=== PATIENT | female | born 1950 | race Caucasian/White ===

== ENCOUNTER 2017-05-20 22:53 | Emergency (ER) | payer BC ==
[~2017-05-20] VITALS: Ht 160 cm; Wt 81.6 kg
[~2017-05-20 22:53] MED LIST: ALLEGRA60 M2 PO; AMOXICILLIN500 MG PO; BONIVA150 MG PO; BONIVA2.5 MG PO; HYDR25T PO; HYDROCODONE BIT1 T11 PO; IBU800 M1 PO; PROPANOLOL
[2017-05-20] MEDS ORDERED: ARIMIDEX1 MG PO (23:04)
[2017-05-20 23:15] LABS: BASO % 0.5 % (0.0-1.0); EOS # 0.3 10*3/uL (0.0-0.4); EOS % 5.2 % (1.0-4.0); HEMATOCRIT 41.1 % (37.0-47.0); HEMOGLOBIN 13.1 g/dl (12.0-16.0); IG # 0.1 10*3/uL (0.0-0.1); LYMPH # 2.2 10*3/uL (1.3-4.4); LYMPH % 34.1 % (27.0-41.0); MEAN CELL VOLUME 96.9 fl (81.0-99.0); MEAN CORPUSCULAR HGB 30.9 pg (27.0-31.0); MEAN CORPUSCULAR HGB CONC 31.9 g/dl (33.0-37.0); MEAN PLATELET VOLUME 10.8 fl (9.6-12.3); MONO # 0.5 10*3/uL (0.1-1.0); NEUT # 3.4 10*3/uL (2.3-7.9); NEUT % 52.4 % (47.0-73.0); PLATELET COUNT AUTOMATED 167 10*3/uL (130-400); RED BLOOD COUNT 4.24 10*6/uL (4.10-5.10); RED CELL DISTRI WIDTH 14.1 % (0-14.5); WHITE BLOOD COUNT 6.5 10*3/uL (4.8-10.8)
[2017-05-20 23:26] LABS: INTERNATIONAL NORM RATIO 0.9 (2.0-3.5); PROTHROMBIN TIME 9.9 SECONDS (9.0-12.4)
[2017-05-20 23:32] LABS: ALBUMIN 3.4 gm/dl (3.1-4.5); ALKALINE PHOSPHATASE 75 U/L (45-117); BILIRUBIN, TOTAL 0.5 mg/dl (0.2-1.0); BUN 17 mg/dl (7-24); CARBON DIOXIDE 29 mmol/L (21-32); CHLORIDE 105 mmol/L (98-107); EST GLOM FILT AFRICAN AMERICAN > 60 ml/min; GLUCOSE 91 mg/dL (65-99); MAGNESIUM 2.1 mg/dL (1.5-2.1); SGOT/AST 24 IU/L (3-35); SGPT/ALT 17 U/L (12-78); SODIUM 145 mmol/L (136-145); TOTAL PROTEIN 7.3 gm/dL (6.4-8.2)
[2017-05-20 23:33] LABS: TROPONIN I < 0.015 ng/ml (<0.045)
== END 2017-05-21 00:15 | disposition home or self-care (01) ==
LOC: ED 22:53
PROVIDERS: Emergency Medicine
DX: R07.9 Chest pain, unspecified (principal); R06.02 Shortness of breath; I10 Essential (primary) hypertension; Z96.652 Presence of left artificial knee joint; Z79.899 Other long term (current) drug therapy

== ENCOUNTER → 2017-12-14 | Outpatient (CLI) | payer BC, MEDICARE ==
[~2017-12-14] MED LIST changes: +ARIMIDEX1 MG PO
[2017-12-14 14:43] LABS: BILIRUBIN NEGATIVE (NEGATIVE); BLOOD NEGATIVE (NEGATIVE); CLARITY CLEAR (CLEAR); COLOR YELLOW (YELLOW); GLUCOSE NEGATIVE (NEGATIVE); KETONE NEGATIVE (NEGATIVE); LEUKO ESTERASE 2+ (NEGATIVE); NITRITE NEGATIVE (NEGATIVE)
[2017-12-14 15:10] LABS: BACTERIA 1+; EPITHELIAL CELLS 35-40; WBC 41-50 wbc/hpf (0-5)
== END | disposition home or self-care (01) ==
LOC: LAB 13:38
PROVIDERS: Orthopaedic Surgery
DX: Z01.818 Encounter for other preprocedural examination (principal); R25.1 Tremor, unspecified; I10 Essential (primary) hypertension; Z85.9 Personal history of malignant neoplasm, unspecified; M19.90 Unspecified osteoarthritis, unspecified site

== ENCOUNTER → 2017-12-21 | Outpatient (CLI) | payer BC, MEDICARE ==
[2017-12-21 09:23] LABS: BUN 12 mg/dl (7-24); CHLORIDE 100 mmol/L (98-107); CREATININE 0.91 mg/dL (0.55-1.02); POTASSIUM 3.5 mmol/L (3.5-5.1); SODIUM 139 mmol/L (136-145)
== END | disposition home or self-care (01) ==
LOC: LAB 08:34
PROVIDERS: Orthopaedic Surgery
DX: E87.5 Hyperkalemia (principal)

== ENCOUNTER → 2019-11-15 | Outpatient (CLI) | payer MEDICARE, OTHER | END | disposition home or self-care (01) | LOC: CARD 09:56 | DX: R55 Syncope and collapse (principal); R00.1 Bradycardia, unspecified ==

== ENCOUNTER → 2019-12-05 | Outpatient (CLI) | payer MEDICARE, OTHER | END | disposition home or self-care (01) | LOC: CARD 08:04 | DX: R01.1 Cardiac murmur, unspecified (principal); R55 Syncope and collapse ==

== ENCOUNTER → 2020-10-15 | Outpatient (CLI) | payer MEDICARE, OTHER | END | disposition home or self-care (01) | LOC: COVID19 09:16 | PROVIDERS: ATTEND Nurse Practitioner Primary Care | DX: U07.1 COVID-19 (principal); J32.4 Chronic pansinusitis ==

== ENCOUNTER → 2020-10-29 | Outpatient (CLI) | payer MEDICARE, OTHER | END | disposition home or self-care (01) | LOC: CT 10-24 14:00 | PROVIDERS: ATTEND Nurse Practitioner Primary Care | DX: J34.2 Deviated nasal septum (principal); J34.89 Other specified disorders of nose and nasal sinuses; J32.4 Chronic pansinusitis ==

== ENCOUNTER → 2021-04-15 | Outpatient (CLI) | payer MEDICARE, OTHER | END | disposition home or self-care (01) | LOC: US 15:00 | PROVIDERS: ATTEND Nurse Practitioner Primary Care | DX: M79.605 Pain in left leg (principal); M79.89 Other specified soft tissue disorders; Z78.9 Other specified health status ==

== ENCOUNTER → 2021-08-06 | Outpatient (CLI) | payer MEDICARE, OTHER | END | disposition home or self-care (01) | LOC: RAD 09:58 | PROVIDERS: ATTEND Nurse Practitioner Primary Care | DX: R05 Cough (principal); C43.9 Malignant melanoma of skin, unspecified; R52 Pain, unspecified ==

== ENCOUNTER → 2022-04-09 | Outpatient (CLI) | payer MEDICARE, OTHER | END | disposition home or self-care (01) | LOC: US 09:30 | PROVIDERS: ATTEND Nurse Practitioner Primary Care | DX: R10.13 Epigastric pain (principal); R11.0 Nausea ==

== ENCOUNTER 2022-08-20 16:37 | Emergency (ER) | payer MEDICARE, OTHER ==
[~2022-08-20] VITALS: Ht 160 cm; Wt 79.4 kg
== END 2022-08-20 18:41 | disposition home or self-care (01) ==
LOC: ED 16:37
DX: S80.11XA Contusion of right lower leg, initial encounter (principal); S93.402A Sprain of unspecified ligament of left ankle, initial encounter; S63.502A Unspecified sprain of left wrist, initial encounter; Z79.899 Other long term (current) drug therapy; W18.39XA Other fall on same level, initial encounter; Y93.89 Activity, other specified; Y92.89 Other specified places as the place of occurrence of the external cause; Y99.8 Other external cause status

== ENCOUNTER 2022-09-12 23:00 | Emergency (ER) | payer MEDICARE, OTHER ==
[~2022-09-12] VITALS: Ht 170.1 cm; Wt 80.3 kg
[2022-09-12 23:49] LABS: BASO % 0.5 % (0.0-1.0); EOS # 0.3 10*3/uL (0.0-0.4); EOS % 4.6 % (1.0-4.0); HEMATOCRIT 41.7 % (37.0-47.0); LYMPH % 32.6 % (27.0-41.0); MEAN CELL VOLUME 99.8 fl (81.0-99.0); MEAN CORPUSCULAR HGB 31.1 pg (27.0-31.0); MEAN CORPUSCULAR HGB CONC 31.2 g/dl (33.0-37.0); MEAN PLATELET VOLUME 11.1 fl (9.6-12.3); MONO # 0.6 10*3/uL (0.1-1.0); MONO % 10.5 % (3.0-9.0); NEUT # 3.1 10*3/uL (2.3-7.9); NEUT % 51.3 % (47.0-73.0); PLATELET COUNT AUTOMATED 178 10*3/uL (130-400); RED BLOOD COUNT 4.18 10*6/uL (4.10-5.10); RED CELL DISTRI WIDTH 14.1 % (0-14.5); WHITE BLOOD COUNT 6.1 10*3/uL (4.8-10.8)
[2022-09-13 00:01] LABS: ACT PARTIAL THROMBO TIME 21.3 SECONDS (20.0-32.1); INTERNATIONAL NORM RATIO 0.9 (2.0-3.5)
[2022-09-13 00:08] LABS: CREATININE 1.39 mg/dL (0.55-1.02); TOTAL PROTEIN 6.9 gm/dL (6.4-8.2)
== END 2022-09-13 01:05 | disposition short-term general hospital (02) ==
LOC: ED 23:00
PROVIDERS: Emergency Medicine
DX: I63.9 Cerebral infarction, unspecified (principal); Z79.899 Other long term (current) drug therapy

== ENCOUNTER → 2022-09-20 | Outpatient (CLI) | payer MEDICARE, OTHER | END | disposition home or self-care (01) | LOC: US 11:00 | PROVIDERS: ATTEND Nurse Practitioner Primary Care | DX: I63.10 Cerebral infarction due to embolism of unspecified precerebral artery (principal); R60.0 Localized edema ==

== ENCOUNTER → 2023-05-03 | Outpatient (CLI) | payer MEDICARE, OTHER | END | disposition home or self-care (01) | LOC: US 01:55 | PROVIDERS: ATTEND Nurse Practitioner Primary Care | DX: N13.39 Other hydronephrosis (principal); I10 Essential (primary) hypertension; N30.90 Cystitis, unspecified without hematuria; N28.9 Disorder of kidney and ureter, unspecified ==

== ENCOUNTER 2024-08-11 22:26 | Emergency (ER) | payer MEDICARE, OTHER ==
[~2024-08-11] VITALS: Ht 160 cm; Wt 79.4 kg
[2024-08-12] MEDS ORDERED: AMOX-CLAV 875-1 EACH PO (03:33)
[2024-08-12] MEDS ORDERED: Amoxicillin/Clavulanate Pota 875 MG TAB PO ONE (03:35)
[2024-08-12] MEDS ORDERED: ACETAMINOPHEN 325 MG TAB PO ONE (03:35)
== END 2024-08-12 04:04 | disposition home or self-care (01) ==
LOC: ED 22:26
DX: J32.9 Chronic sinusitis, unspecified (principal); M19.90 Unspecified osteoarthritis, unspecified site; I12.9 Hypertensive chronic kidney disease with stage 1 through stage 4 chronic kidney disease, or unspecified chronic kidney disease; N18.4 Chronic kidney disease, stage 4 (severe); Z91.041 Radiographic dye allergy status; Z96.652 Presence of left artificial knee joint

== ENCOUNTER → 2024-08-24 | Outpatient (CLI) | payer MEDICARE, OTHER ==
[~2024-08-24] MED LIST changes: +AMOX-CLAV 875-1 EACH PO
== END | disposition home or self-care (01) ==
LOC: RAD 11:31
PROVIDERS: ATTEND Nurse Practitioner Primary Care
DX: M47.812 Spondylosis without myelopathy or radiculopathy, cervical region (principal); M25.78 Osteophyte, vertebrae